=== PATIENT | female | born 1945 | race Caucasian/White ===

== ENCOUNTER 2020-03-16 16:37 | Outpatient (CLI) | payer MEDICARE, SELFPAY ==
--- NOTE | ~2020-03-16 | MM_ITS ---
EXAMINATION: MM screening [facility] BI w divina HISTORY: Screening mammogram TECHNIQUE: Craniocaudal and mediolateral oblique 3-D tomosynthesis images were obtained and synthetic 2-D images were generated. CAD analysis was submitted and interpreted. COMPARISON: 03/04/2019, 02/18/2018, 02/16/2017 BREAST PARENCHYMAL COMPOSITION: The breasts are heterogeneously dense, which may obscure small masses . FINDINGS: There is no evidence of suspicious mass, calcification, or architectural distortion to sugg est malignancy in either breast. There has been no suspicious interval change. IMPRESSION: 1. No mammographic evidence of malignancy. 2. Recommend routine screening mammography in one year. BI-RADS Category 1: Negative Reviewed, dictated and finalized at location A.
== END 2020-03-16 16:38 | disposition home or self-care (01) ==
LOC: ANHIMG 16:40
PROVIDERS: PCP Family Medicine; Visit Provider Physician Assistant
DX: Z12.31 Encounter for screening mammogram for malignant neoplasm of breast (principal)
CPT/HCPCS: 77063; 77067

== ENCOUNTER 2021-06-27 15:03 | Outpatient (CLI) | payer MEDICARE, SELFPAY ==
--- NOTE | ~2021-06-27 | MM_ITS ---
EXAMINATION: MM screening [facility] BI w divina HISTORY: Screening TECHNIQUE: Craniocaudal and mediolateral oblique 3-D tomosynthesis images were obtained and synthetic 2-D images were generated. CAD analysis was submitted and interpreted. COMPARISON: Comparison to multiple prior studies sequentially, with oldest reviewed study dated 02/05. BREAST PARENCHYMAL COMPOSITION: The breasts are heterogenously dense, which may obscure small masses FINDINGS: There is no evidence of suspicious mass, calcification, or architectural distortion to sugg est malignancy in either breast. There has been no suspicious interval change. IMPRESSION: 1. No mammographic evidence of malignancy. 2. Recommend routine screening mammography in one year. BI-RADS Category 1: Negative Reviewed, dictated and finalized at location A. OPERATOR
== END 2021-06-27 15:04 | disposition home or self-care (01) ==
LOC: ANHIMG 15:05
PROVIDERS: PCP Family Medicine; Visit Provider Physician Assistant
DX: Z12.31 Encounter for screening mammogram for malignant neoplasm of breast (principal)
CPT/HCPCS: 77063; 77067

== ENCOUNTER 2021-09-04 07:51 | Outpatient (CLI) | payer MEDICARE, SELFPAY ==
--- NOTE | ~2021-09-04 | DEXA_ITS ---
Bone Density Report Name: ERICK GÓMEZ Age: 75 Sex: Female Ethnicity: White Date of : 1945 Indication: osteopenia; height loss; Referring Provider: TENZIN HEATH Study: Bone densitometry was performed. Exam Date: September 04, 2021 Accession number: [id number] Bone Density: Region BMD T-score Z-score Classification AP Spine(L1-L4) 0.794 -2.3 0.0 Osteopenia Femoral Neck (Left) 0.584 -2.4 -0.4 Osteopenia Total Hip (Left) 0.651 -2.4 -0.7 Osteopenia Femoral Neck (Right) 0.602 -2.2 -0.2 Osteopenia Total Hip (Right) 0.709 -1.9 -0.2 Osteopenia Total Hip Mean 0.680 -2.2 -0.5 Osteopenia World Health Organization criteria for BMD impression classify patients as: Normal (T-score at or above -1.0), Osteopenia (T-score between -1.0 and -2.5), or Osteoporosis (T-score at or below -2.5). 10-year Fracture Risk(1): Major Osteoporotic Fracture 15% Hip Fracture 4.0% Reported Risk Factors: [place] (), Neck BMD=0.584, BMI=29.1 (1) FRAX(R) Version 3.08. Fracture probability calculated for an untreated patient. Fracture probability may be lower if the patient has received treatment. Previous Exams: Region Exam Age BMD T-score BMD Change BMD Change Date g/cm2 vs Baseline vs Previous AP Spine(L1-L4) 09/04/2021 75 0.794 -2.3 -0.010(-1.3%) 0.012(1.6%) 03/04/2019 73 0.781 -2.4 -0.023(-2.8%)* 0.012(1.6%) 02/16/2017 71 0.769 -2.5 -0.035(-4.3%)* -0.035(-4.3%)* 02/05/2015 69 0.804 -2.2 Total Hip(Left) 09/04/2021 75 0.651 -2.4 -0.039(-5.7%)* -0.042(-6.1%)* 03/04/2019 73 0.693 -2.0 0.003(0.4%) 0.019(2.8%) 02/16/2017 71 0.674 -2.2 -0.016(-2.3%) -0.016(-2.3%) 02/05/2015 69 0.690 -2.1 Total Hip(Right) 09/04/2021 75 0.709 -1.9 0.013(1.9%) 0.012(1.7%) 03/04/2019 73 0.697 -2.0 0.001(0.2%) 0.011(1.6%) 02/16/2017 71 0.686 -2.1 -0.010(-1.4%) -0.010(-1.4%) 02/05/2015 69 0.696 -2.0 *Denotes significance at 95% confidence level, LSC for AP Spine = 0.022 g/cm2, LSC for Total Hip = 0.027 g/cm2 Clinical Information Provided by Patient: Patient maximum height was 67 Menopause Age: 47 Drinks caffeinated beverages Onset of menses at age 14 Number of children 2 Impression: The patient has low bone mass, based on the Left Total Hip T-score. The patient has an estimated ten-year risk of hip fracture of 4% and an estimated ten-year risk of major f
== END 2021-09-04 07:52 | disposition home or self-care (01) ==
LOC: ANHIMG 07:52
PROVIDERS: PCP Family Medicine; Visit Provider Physician Assistant
DX: Z78.0 Asymptomatic menopausal state (principal); M85.88 Other specified disorders of bone density and structure, other site; M85.851 Other specified disorders of bone density and structure, right thigh; M85.852 Other specified disorders of bone density and structure, left thigh
CPT/HCPCS: 77080

== ENCOUNTER → 2022-05-08 11:48 | Outpatient (CLI) | payer MEDICARE, SELFPAY ==
--- NOTE | ~2022-05-08 | XR_ITS ---
Lumbosacral Spine: AP, oblique, and lateral views Clinical History: Pain Findings: The normal lordotic curve is maintained. No fracture or subluxation seen. There is moderate degenerative disc narrowing at L4-L5 and L5-S1. There are mild facet joint degenerative changes at L 4-L5 and L5-S1. The sacroiliac joints are normally outlined. Impression: Mild degenerative changes, as above. Reviewed, dictated and finalized at location M. AVING MACHINE OPERATOR Impression: Mild degenerative changes, as above.
--- NOTE | ~2022-05-08 | XR_ITS ---
Left Knee Technique: AP, lateral, and sunrise views were obtained. Clinical History: Pain Findings: No fracture or dislocation is seen. Osseous alignment is anatomic. There is mild to moderat e tricompartmental osteoarthritis, with osteophyte formation and medial compartment narrowing. Soft t issues are unremarkable. No joint effusion is seen. Impression: [id number] tricompartmental osteoarthritis, as detailed above. Reviewed, dictated and finalized at location M. OFF SAW OPERATOR Impression: [id number] tricompartmental osteoarthritis, as detailed above.
--- NOTE | ~2022-05-08 | XR_ITS ---
Right Knee Technique: AP, lateral, and sunrise views were obtained. Clinical History: Pain Findings: No fracture or dislocation is seen. Osseous alignment is anatomic. There is mild to moderat e tricompartmental osteoarthritis, with osteophyte formation. Probable mild medial compartment narrow ing.. Soft tissues are unremarkable. No joint effusion is seen. Impression: Mild to moderate tricompartmental osteoarthritis, as detailed above. Reviewed, dictated and finalized at location M. ECT BUYER Impression: Mild to moderate tricompartmental osteoarthritis, as detailed above.
== END ==
PROVIDERS: PCP Family Medicine; Visit Provider Physician Assistant
DX: M51.36 Other intervertebral disc degeneration, lumbar region (principal); M17.0 Bilateral primary osteoarthritis of knee
CPT/HCPCS: 72110; 73562

== ENCOUNTER 2022-09-11 15:11 | Outpatient (CLI) | payer MEDICARE, SELFPAY ==
--- NOTE | ~2022-09-11 | MM_ITS ---
EXAMINATION: MM screening [facility] BI w divina HISTORY: Screening mammogram TECHNIQUE: Craniocaudal and mediolateral oblique 3-D tomosynthesis images were obtained and synthetic 2-D images were generated. CAD analysis was submitted and interpreted. COMPARISON: June 27, 2021, March 16, 2020, March 04, 2019 bilateral screening mammogram examin ations BREAST PARENCHYMAL COMPOSITION: The breasts are heterogeneously dense, which may obscure small masses . FINDINGS: There is suggestion of a new approximately 8 mm mass in the mid to lower outer right breast . Diagnostic right mammogram and right breast ultrasound examination are recommended. Otherwise there is no evidence of suspicious mass, calcification, or architectural distortion to sugg est malignancy in either breast. There has been no other suspicious interval change. IMPRESSION: 1. Possible new 8 mm mass in mid to lower outer right breast 2. Diagnostic right mammogram and right breast ultrasound examination are recommended BI-RADS Category 0: Incomplete: Needs additional imaging evaluation. Reviewed, dictated and finalized at location A. IMPRESSION: 1. Possible new 8 mm mass in mid to lower outer right breast 2. Diagnostic right mammogram and right breast ultrasound examination are recom mended BI-RADS Category 0: Incomplete: Needs additional imaging evaluation.
== END 2022-09-11 15:12 | disposition home or self-care (01) ==
PROVIDERS: PCP Family Medicine; Visit Provider Physician Assistant
DX: Z12.31 Encounter for screening mammogram for malignant neoplasm of breast (principal); R92.8 Other abnormal and inconclusive findings on diagnostic imaging of breast
CPT/HCPCS: 77063; 77067

== ENCOUNTER 2022-09-27 13:36 | Outpatient (CLI) | payer MEDICARE, SELFPAY ==
--- NOTE | ~2022-09-27 | MMUS_ITS ---
EXAMINATION: MM diagnostic [facility] RT w divina, US breast RT limited HISTORY: Possible right breast mass on screening mammogram TECHNIQUE: Additional 3-D tomosynthesis images of the right breast were performed and synthetic 2-D i mages were generated. CAD analysis was submitted and interpreted. High resolution limited right breas t ultrasound was performed. COMPARISON: 09/11/2022, 06/27/2021, 03/16/2020 FINDINGS: MAMMOGRAPHIC FINDINGS: There is a return to baseline fibroglandular appearance with spot compression of the right breast in the area questioned on screening mammogram. ULTRASOUND: There is a 12 mm x 6 mm oval, circumscribed, parallel, complex cystic and solid mass at the 10:00 loc ation 3 cm from the nipple with no posterior features or internal vascularity, possible clustered kati rocysts. IMPRESSION: 1. Probably benign right breast mass. 2. Recommend 6 month follow-up right diagnostic mammogram and ultrasound. BI-RADS category 3, probably benign findings. Reviewed, dictated and finalized at location A. IMPRESSION: 1. Probably benign right breast mass. 2. Recommend 6 month follow-up right diagnostic mammogram and ultrasound. BI-RADS category 3, probably benign findings.
== END 2022-09-27 13:37 | disposition home or self-care (01) ==
PROVIDERS: PCP Family Medicine; Visit Provider Family Medicine
DX: N63.11 Unspecified lump in the right breast, upper outer quadrant (principal)
CPT/HCPCS: 76642; 77061; 77065; G0279

== ENCOUNTER 2023-03-07 14:01 | Outpatient (CLI) | payer MEDICARE, SELFPAY ==
--- NOTE | 2023-03-07 14:08 | ECG_ITS ---
Measurements Intervals [place] Rate: 70 P: -8 FL: 149 QRS: -8 QRSD: 96 T: 30 QT: 420 QTc: 454 Interpretive Statements SINUS RHYTHM SEPTAL MYOCARDIAL INFARCTION , OF INDETERMINATE AGE [40+ ms Q WAVE IN V1/V2] ABNORMAL ECG NO PREVIOUS ECG AVAILABLE FOR COMPARISON Electronically Signed On 03-07-2023 17:24:29 CDT by Pablo Blanca M.D.
== END 2023-03-07 14:02 | disposition home or self-care (01) ==
LOC: ANHLAB 14:03 → ANHCARD 14:05
PROVIDERS: PCP Family Medicine; Visit Provider Family Medicine
DX: Z01.818 Encounter for other preprocedural examination (principal); R94.31 Abnormal electrocardiogram [ECG] [EKG]; R93.1 Abnormal findings on diagnostic imaging of heart and coronary circulation; I10 Essential (primary) hypertension
CPT/HCPCS: 93005

== ENCOUNTER 2023-03-19 09:56 | Outpatient (CLI) | payer MEDICARE, SELFPAY ==
--- NOTE | ~2023-03-19 | NM_ITS ---
EXAMINATION: NM mago stress w perfusion DATE: 03/19/2023 12:57 INDICATION: Abnormal electrocardiogram. TECHNIQUE: Rest images were obtained following intravenous administration of 9.2 mCi Tc99m tetrofosmi n (Myoview). The patient was infused intravenously with Lexiscan (regadenoson). Then, 28.3 mCi Tc99m tetrofosmin (Myoview) was administered intravenously, and stress images were obtained. Data was recon structed into short axis and horizontal and vertical long axis SPECT images. Gated SPECT images were also obtained. COMPARISON: None. FINDINGS: There is no definite reversible or fixed perfusion abnormality to suggest ischemia or infar ction. There is no segmental wall motion abnormality. Left ventricular ejection fraction measures > 70%. IMPRESSION: 1. No definite ischemia or infarct. 2. Normal left ventricular ejection fraction measuring >70%. Reviewed, dictated and finalized at location E.
--- NOTE | 2023-03-19 10:17 | EST_ITS ---
Patient Info Name: Irma Iglesias Age: 77 years : 1945 Gender: Female Ht: 67 in Wt: 185 lbs BSA: 2.01 m2 HR: 65 bpm BP: 159 / 91 mmHg Exam Date: 03/19/2023 10:51 AM Exam Location: Echo Lab Patient Status: Outpatient Admit Date: 03/19/2023 Staff Ordering Physician: Galina Nash MD Attending Provider: DR. REYES Exercise Technologist: Bertha Kelsey CT Exercise Physician: Mauricio Reyes DO Exam Type: CA stress mago w NM Study Info Indications R94.31 - Abnormal electrocardiogram ECG EKG Z01.810 - Encounter for preprocedural cardiovascular examination A regadenoson stress test was performed. Summary 1. 1. Negative lexiscan stress test for ischemic ST changes by ECG criteria. 2. 2. Baseline hypertension. 3. 3. Nuclear scan to follow and will be reported separately. Please correlate with it. 4. 4. Patient informed of the above results. Protocol: Lexiscan Stress ECG Details Stage: REST Duration (min): 1 min : 3 sec HR (bpm): 65 SBP (mmHg): 159 DBP (mmHg): 91 Stage: REST Duration (min): 32 min : 19 sec HR (bpm): 67 SBP (mmHg): 159 DBP (mmHg): 91 Stage: STAGE 1 Duration (min): 1 min : 0 sec HR (bpm): 77 SBP (mmHg): 187 DBP (mmHg): 106 Stage: RECOVERY Duration (min): 1 min : 0 sec HR (bpm): 85 SBP (mmHg): 187 DBP (mmHg): 106 Stage: RECOVERY Duration (min): 2 min : 0 sec HR (bpm): 79 SBP (mmHg): 187 DBP (mmHg): 106 Stage: RECOVERY Duration (min): 3 min : 0 sec HR (bpm): 78 SBP (mmHg): 187 DBP (mmHg): 106 Stage: RECOVERY Duration (min): 3 min : 24 sec HR (bpm): 78 SBP (mmHg): 150 DBP (mmHg): 99 Rest HR: 67 bpm Peak HR: 85 bpm Rest Sys BP: 159 mmHg Peak Sys BP: 187 mmHg Max Pred HR: 145 bpm % Max Pred HR: 59 % Target HR: 123 bpm Max RPP: 15,895 bpm*mmHg Termination Reason: Completed protocol Cardiac Symptoms: Shortness of breath Total Time: 1 min : 0 sec Rest Zayas BP: 91 mmHg Peak Zayas BP: 106 mmHg Total Dose: 0.4 mg Resting ECG Sinus rhythm, IRBBB, delayed precordial R/S transition. Stress ECG No ST changes. Arrhythmias None. Report Signatures
== END 2023-03-19 09:57 | disposition home or self-care (01) ==
LOC: ANHCARD 10:00
PROVIDERS: PCP Family Medicine; Visit Provider Family Medicine
DX: R94.31 Abnormal electrocardiogram [ECG] [EKG] (principal)
CPT/HCPCS: 78452; 93017; A9502; J2785

== ENCOUNTER 2023-06-16 15:17 | Emergency (ER) | payer MEDICARE, SELFPAY ==
--- NOTE | 2023-06-16 15:27 | ED.EAR ---
HPI - Ear Problem General Chief complaint: Ear Stated complaint: hearing echoing Time Seen by Provider: 06/16/23 15:35 Source: patient Mode of arrival: ambulatory Limitations: no limitations History of Present Illness HPI Narrative: Irma is a 77-year-old female patient presenting to the clinic today with complaints of hearing difficulty/echoing and a throbbing sensation in her ears. This has occurred over the left last few days. She denies any pain or URI symptoms Related Data Home Medications Medication Instructions Recorded Confirmed fexofenadine 180 mg tablet 180 mg PO DAILY 02/16/20 06/16/23 (Andra Allergy) fluticasone propionate 50 1 spray intranasal DAILY 04/11/21 06/16/23 mcg/actuation nasal spray,suspension (Flonase Allergy Relief) Allergies Allergy/AdvReac Type Severity Reaction Status Date / Time albuterol AdvReac Intermediate tachycardia Verified 06/16/23 15:19 Review of Systems Review of Systems: Pertinent positives per HPI. Patient denies any fever, chills, rash, headache, visual changes, dizziness, cough, runny nose, sore throat, shortness of breath, chest pain, palpitations, nausea, vomiting, diarrhea, constipation, abdominal pain, or any urinary issues. [facility] Past Medical History Medical History Arthritis Hypertension Osteopenia Thyroid disease Surgical History Surgical History History of appendectomy 1967 History of tubal ligation around 1982 Status post left knee replacement [place] teeth extracted Family History Family History Mother Family history of cardiovascular disease Sibling Family history of lung cancer Father Emphysema of lung Social History Social History Smoking status: Never smoker Second hand tobacco smoke exposure: No Alcohol intake: current Drinks per week: 2 Alcohol use details: 1 glass of wine consumed on the weekends Substance use: never Substance use type: does not use Lack of Transportation: No Lack of Food: Never True Current Housing: I Have Housing Concerned About Future Housing: No Difficulty Paying Gas/Electric Bills: No Difficulty Paying for Meds: No Currently Unemployed: No Education: High School Diploma/GED Difficulty w/ Childcare or Family Care: No Living arrangements: alone Occupation/Education: occupation Gender identity (if verbalized by the patient): Female Spiritual care concerns: No Agree to blood products: Yes Comments At the time of my signature, I reviewed and agree with the nursing past medical, surgical, social, and family history. There is no relevant family history pertinent to the patient complaint. Exam Narrative: General: Well-developed, well nourished, in no apparent distress Head: Normocephalic, atraumatic Eyes: Pupils equally round and reactive to light bilaterally, EOM intact, sclera and conjunctive clear, no discharge, lids normal Ears: Bilateral cerumen impaction, ear irrigation was performed, TMs intact and clear, ear canals clear, no drainage, hearing improved after irrigation was performed. Nose: Nares patent, no discharge, no inflammation, no sinus tenderness. Mouth: Oropharynx without lesions or masses, good dentition, MMM. Neck: Supple, trachea midline, no enlargement of anterior or posterior cervical nodes, no thyroid masses or goiter palpable. Cardio: Regular rate and rhythm, s1 and s2 normal, no murmur appreciated. Resp: Clear to auscultation bilaterally anteriorly and posteriorly, no rhonchi, rales, wheezing or rubs Course Course Emergency Course: Portions of this record may have been created with voice recognition software. Level of Care: Express Care Visit Vital Signs Vital signs: Vital signs revi
[2023-06-16 15:30] VITALS: BP 185/93; PULSE 94; RESP 20; TEMP 36.7; O2SAT 100
== END 2023-06-16 15:44 | disposition home or self-care (01) ==
PROVIDERS: Emergency Provider Nurse Practitioner Family; PCP Family Medicine
DX: H61.23 Impacted cerumen, bilateral (principal); M19.90 Unspecified osteoarthritis, unspecified site; I10 Essential (primary) hypertension; M85.80 Other specified disorders of bone density and structure, unspecified site; Z96.652 Presence of left artificial knee joint
CPT/HCPCS: 69209; 99212; G0463

== ENCOUNTER 2023-07-08 12:10 | Outpatient (CLI) | payer MEDICARE, SELFPAY ==
--- NOTE | ~2023-07-08 | MMUS_ITS ---
EXAMINATION: MM diagnostic [facility] RT w divina, US breast RT limited HISTORY: Follow-up right breast mass TECHNIQUE: Additional 3-D tomosynthesis images of the right breast were performed and synthetic 2-D i mages were generated. CAD analysis was submitted and interpreted. High resolution Limited right breas t ultrasound was performed. COMPARISON: Comparison to multiple prior studies sequentially, with oldest reviewed study dated 06/2017. BREAST PARENCHYMAL COMPOSITION: Dense: The breasts are heterogeneously dense, which may obscure small masses FINDINGS: MAMMOGRAPHIC FINDINGS: The right breast is stable. No new masses, calcifications or architectural distortion in the right br east to suggest malignancy. There are benign calcifications. ULTRASOUND: Limited right breast ultrasound: At 10:00, 3 cm from the nipple there is an irregular shaped hypoecho ic heterogeneous mass with parallel orientation, no significant posterior features and no internal va scularity. This mass measures 11 x 6 x 5 mm compared with 12 x 10 x 6 mm on prior examination althoug h it has a more solid appearance. The morphology of the mass has changed since prior study. IMPRESSION: 1. Altered morphology of 11 mm mass at 10:00, 3 cm from the nipple, indeterminate. 2. Follow-up ultrasound-guided right breast biopsy recommended. BI-RADS category 4, suspicious findings. Reviewed, dictated and finalized at location A. RIOR DESIGN INSTRUCTOR IMPRESSION: 1. Altered morphology of 11 mm mass at 10:00, 3 cm from the nipple, indetermina te. 2. Follow-up ultrasound-guided right breast biopsy recommended. BI-RADS category 4, suspicious findings.
== END 2023-07-08 12:11 | disposition home or self-care (01) ==
PROVIDERS: PCP Family Medicine; Visit Provider Physician Assistant
DX: R92.8 Other abnormal and inconclusive findings on diagnostic imaging of breast (principal)
CPT/HCPCS: 76642; 77061; 77065; G0279

== ENCOUNTER 2024-12-31 07:42 | Outpatient (CLI) | payer MEDICARE, SELFPAY ==
--- NOTE | ~2024-12-31 | DEXA_ITS ---
Bone Density Report Name: ERICK GÓMEZ Age: 79 Sex: Female Ethnicity: White Date of : 1945 Indication: postmenopausal; screening for osteoporosis; height loss; Referring Provider: NILDA DENG Study: Bone densitometry was performed. Exam Date: December 31, 2024 Accession number: [id number] Bone Density: Region BMD T-score Z-score Classification AP Spine(L1-L4) 0.825 -2.0 0.5 Osteopenia Femoral Neck (Left) 0.566 -2.6 -0.4 Osteoporosis Total Hip (Left) 0.620 -2.6 -0.7 Osteoporosis Femoral Neck (Right) 0.555 -2.6 -0.5 Osteoporosis Total Hip (Right) 0.658 -2.3 -0.4 Osteopenia Total Hip Mean 0.639 -2.5 -0.6 Osteopenia World Health Organization criteria for BMD impression classify patients as: Normal (T-score at or above -1.0), Osteopenia (T-score between -1.0 and -2.5), or Osteoporosis (T-score at or below -2.5). 10-year Fracture Risk: FRAX not reported because: Some T-score for Spine Total or Hip Total or Femoral Neck at or below -2.5 Clinical Information Provided by Patient: Has used the following medications: Vitamin D Patient maximum height was 67 Menopause Age: 47 Drinks caffeinated beverages Onset of menses at age 14 Number of children 2 Impression: The patient has osteoporosis, based on the Left Total Hip T-score. Discussion: INCREASED RISK OF FRACTURE. BONE DENSITY IS UNDESIRABLY LOW AT ONE OR MORE SKELETAL SITES, CONSISTENT WITH POSTMENOPAUSAL OSTEOPOROSIS. This patient's lowest T-score meets the World Health Organization's (WHO) criteria for osteoporosis at one or more sites (T-score -2.5 or below). In untreated patients, the risk of osteoporotic fracture increases approximately two-fold for each 1.0 SD decrease in T-score. Low bone density is not the only risk factor for fracture; also consider factors such as patient's age, frailty or poor health, risk of falling, risk of injury, previous osteoporotic fracture, family history of osteoporosis, cigarette smoking, low body weight, etc. Not everyone with low bone mineral density has osteoporosis; osteomalacia and other metabolic bone disorders should also be considered. Patients who have osteoporosis should be evaluated for specific diseases and conditions (secondary causes) that may cause or contribute to bone loss. The [place] Association of Clinical Endocrinologists (AACE) and National Osteoporosis Foundation (NOF) recommend pharmacologic intervention for all postmenopausal women whose T-score is in this range. The patient should follow a healthful lifestyle (good nutrition with adequate calcium and vitamin D, and appropriate weight-bearing exercise). Follow-Up: Consider a repeat BMD and Vertebral Fracture Assessment (VFA) exam in 2 years or sooner if medically necessary, to reassess this patient's status. Reported by: ROCAEL on 12/31/2024 8:34:00 AM. Reviewed, dictated and finalized at location A.
--- OUTSIDE RECORDS SUMMARY | 2024-12-31 07:47 | XMS_ITS | Continuity of Care Document ---
Author Organization [facility] Address [address] [place] [address] [facility] [address] [place] [address] Phone Care Team Providers Care Contour Stitcher Name Role Phone Amanda George Unavailable Unavailable Advance Directives Directive Yes / No Effective Date File Name No Information Encounters Encounter Description Practice Location Reason(s) For Visit Diagnoses Date Provider Providers Copied on Encounter [facility], [id number] [place] [address] [address], [place], [place], [id number], [place] tel:[phone] [facility] No Information [phone] Doris Patel. [address] , [address], [place], [address], [place]. tel:[phone] Family History Family Member Type Diagnosis Age At Onset No Information Payers Payer name Insurance type Covered libertarian ID Authoriza tion(s) No Information Social History Type Description Quantity Date Captured Comments Sex Female Smoking Status No Information Chief Complaint And Reason For Visit No Information Reason For Referral Reason For Referral No Information History Of Present Illness Encounter Date Complaint History Of Prese nt Illness No Information Functional Status Date Functional Assessmen t No Information Instructions Date Instruction Additional Infor mation No Information Assessments Type Assessment Date No Information Patient Care Teams Name Effective Dates (start - stop) Status Members No Information
--- OUTSIDE RECORDS SUMMARY | 2024-12-31 07:47 | XMS_ITS | Clinical Summary ---
Author Organization [facility] Address [address], [facility] [address] [place] [address] Phone Care Team Providers Care Medical Records Assistant Name Role Phone Sharad De Los Santos MD Primary Care Provider [phone] Medications polyethylene glycol (MIRALAX) Powder Use entire 255g bottle with 64oz of clear liquid as directed for colonoscopy prep. 255 g 7 Active levothyroxine (SYNTHROID) 50 MCG Tablet Take 50 mcg by mouth daily. Active lisinopril (PRINIVIL, ZESTRIL) 40 MG Tablet Take 40 mg by mouth daily. Active Fexofenadine HCl (JOHN PO) Take by mouth. Activ e Ibuprofen (ADVIL PO) Take by mouth. Acti ve Wheat Dextrin (BENEFIBER PO) Take by mouth. Active Docusate Sodium (COLACE PO) Take by mouth. Act linda Family History Medical History Relation Name Comments Lung Cancer Brother Emphysema Father Colon Cancer Mother Hypertension Mother Relation Name Status Comments Brother Father Mother Social History Tobacco Use Types Packs/Day Years Used Date Smoking Tobacco: Never Smokeless Tobacco: Never Alcohol Use Standard Drinks/Week Comments Yes 0 (1 standard drink = 0.6 oz pur e alcohol) socailly Comments Unknown Sex and Gender Information Value Date Recorded Sex Assigned at Not on file Legal Sex Female 9:33 PM CDT Gender Identity Not on file Sexual Orientation Not on file Plan of Treatment Health Maintenance Due Date Last Done Comments Hepatitis C Virus (HCV) Screening 1945 TdaP Immunization 1945 Pneumococcal Immunization (5 0+ years) (1 of 1 - PCV) 12/30/1997 Zoster Immunization (1 of 2) 12/30/1997 Respiratory Syncytial Virus (RSV) Immunization (Adult) (1 - 1-dose 75+ series) 12/30/2022 SARS-COV-2 Immunization (1 - 2023- season) 2024 Influenza Immunization (#1) 2025 Colonoscopy Discontinued 05/09/2017 Colorectal Cancer Screening Discontinued Cologuard Discontinued Hepatitis B Immunization Aged Out No longer eligible based on patient's age to complete this topic Human Papillomavirus (HPV) Immunization Aged Out No longer eligible b ased on patient's age to complete this topic Immunochemical Fecal Occult Blood Discontinued Meningococcal Immunization (ACWY) Aged Out No longer eligible based on patient's age to complete this topic Rotavirus Immunization Aged Out No lo nger eligible based on patient's age to complete this topic Procedures Procedure Name Priority Date/Time Associated Diagnosis Comments COLONOSCOPY Routine 05/09/2017 from Last 3 Months or Most Recently Relevant to Health Maintenance Results * COLONOSCOPY (05/09/2017) Kong Disla DO PROCEDURE/MINOR SURGICAL ORDERA BLES Final Result from Last 3 Months or Most Recently Relevant to Health Maintenance Insurance MEDICARE [facility]IL[facility] Care Teams Medical Records Assistant Relationship Specialty Start Date End Date Sharda De Los Santos MD [address] [place] [address] PCP - General Family Medicine 11/27/16
--- OUTSIDE RECORDS SUMMARY | 2024-12-31 07:47 | XMS_ITS | Clinical Summary ---
Author Organization [facility] Address [address] [place] [address] Care Team Providers Care Claim Analyst Name Role Phone Galina Nash MD Primary Care Provider [phone] Allergies Active Allergy Reactions Criticality Noted Date Comments Albuterol Palpitations Low 12/25/2022 Medications levothyroxine (SYNTHROID) 75 mcg tablet Take 1 tablet (75 mcg total) by mouth daily Active lisinopriL (PRINIVIL,ZESTR IL) 40 mg tablet Take 1 tablet (40 mg total) by mouth daily Active fexofenadine (JOHN) 180 mg tablet Take 1 tablet (180 mg total) by mouth daily Active fluticasone propionate (FLONASE) 50 mcg/actuation nasal spray Administer 1 spray into each nostril daily Active montelukast (SINGULAIR) 10 mg tablet Take 1 tablet (10 mg total) by mouth nightly at bedtime 3 Active metoprolol tartrate (LOPRESSOR) 25 mg immediate release tablet Take 1 tablet (25 mg total) by mouth daily 4 Active amoxicillin (AMOXIL) 500 mg tablet/capsule Take four capsules one hour prior to any dental procedure 12 tablet/capsul e 4 Active Active Problems Problem Noted Date Diagnosed Date Arthritis of left knee 04/01/2023 Primary osteoarthritis of left knee 01/24/2023 Surgical History Surgery Date Site/Laterality Comments APPENDECTOMY 05/20/1966 - 05/19/1967 COLONOSCOPY JOINT REPLACEMENT 04/01/2023 Left Knee BREAST BIOPSY 08/09/2023 Right Medical History Medical History Date Comments Hypertension Osteoarthritis Thyroid disease Hypothyroidism History of nuclear stress test 02/2023 W NL History of transfusion unsure, p ossbily follow appendix White coat syndrome with hypertension Family History Medical History Relation Name Comments Arthritis Mother Cancer Mother Heart disease Mother Relation Name Status Comments Mother Social History Tobacco Use Types Packs/Day Years Used Date Smoking Tobacco: Never Tobacco Cessation:Counseling Given: Not Answered [facility] Utilities Answer Date Recorded In the past 12 months has e [employer], gas, oil, or water [employer] threatened to shut off services in your home? No 04/02/2023 Social Connection and Isolation Panel Answer Date Recorded In a typical week, how many times do you talk on the phone with family, friends, or neighbors? More than three times a week 04/02/2023 How often do you get togethe r with friends or relatives? More than three times a week 04/02/2023 How often do you attend chur ch or episcopal services? More than 4 times per year 04/02/2023 Do you belong to any clubs o r organizations such as jainism groups, unions, fraternal or athletic groups, or school groups? No 04/02/2023 How often do you attend meet ings of the clubs or organizations you belong to? Never 04/02/2023 Are you , , di vorced, , never , or living with a partner? 04/02/2023 AUDIT-C Answer Date Recorded Q1: How often do you have a drink containing alc ohol? Monthly or less 04/01/2023 Q2: How many drinks containi ng alcohol do you have on a typical day when you are drinking? 1 or 2 04/01/2023 Q3: How often do you have si x or more drinks on one occasion? Never 04/01/2023 Overall Financial Resource Strain (CARDIA) Answe r Date Recorded How hard is it for you to pa y for the very basics like food, housing, medical care, and heating? Not hard at all 04/02/2023 Hunger Vital Sign Answer Date Recorded Within the past 12 months, y ou worried that your food would run out before you got the money to buy more. Never true 04/02/20 23 Within the past 12 months, t he food you bought just didn't last and you didn't have money to get more. Never true 04/02/2023 PRAPARE - Transportation Answer Date Re corded In the past 12 months, has l ack of transportation kept you from medical appointments or from getting medications? No 03/20 In the past 12 months, has l ack of transportation kept you from meetings, work, or from getting things needed for daily living? No 04/02/2023 Housing Stability Vital Sign Answer Sb e Recorded In the last 12 months, was t here a time when you were not able to pay the mortgage or rent on time? No 04/02/2023 In the last 12 months, how many places have you lived? 1 04/02/2023 In the last 12 months, was t here a time when you did not have a steady place to sleep or slept in a care home (including now)? No 04/02/2023 Personal Safety Answer Date Recorded Have you ever been in or are you currently in a harmful physical or emotional relationship or is someone making you feel afraid or unsafe? 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 Not on file Not on file Not on file Obstetrics History Last Filed Vital Signs Vital Sign Reading Time Taken Comments Blood Pressure 142/74 04/02/2023 7:00 AM DRUG COORDINATOR Pulse 62 04/02/2023 7:00 AM DRUG COORDINATOR Temperature 36.3 C (97.3 F) 04/02/2023 7:00 AM DRUG COORDINATOR Respiratory Rate 18 04/02/2023 7:00 AM DRUG COORDINATOR Oxygen Saturation 96% 04/02/2023 7:00 AM DRUG COORDINATOR Inhaled Oxygen Concentration - - Weight 85.3 kg (188 lb) 09/25/2024 11:23 AM CDT Height 170.2 cm (5' 7) 09/25/2024 11:23 AM CDT Body Mass Index 29.44 09/25/2024 11:23 AM CDT Plan of Treatment Health Maintenance Due Date Last Done Comments Depression Screening 1945 Hepatitis C Screening 1945 Osteoporosis Screening-Bone Density Scan 1945 Hepatitis B Screening 12/30/1965 Zoster Vaccine (1 of 2) 12/30/1997 Well Visit 65+ 12/30/2012 Covid-19 Vaccine (4 - 2023-2 5 season) 2024 05/02/2021, 07/24/2020, 07/03/2020 Fall Risk Assessment 04/02/2024 04/02/2023 DTaP/Tdap/Td Vaccine (2 - Td or Tdap) 05/20/2024 05/20/2014 Influenza Vaccine (#1) 2025 Pneumococcal vaccine 65+ Completed 021, 02/25/2019, 11/12/2013 Breast Cancer Screening-Mammogram Discontinued 024 Medical Devices Implanted Type Area Bilingual Receptionist Device Identifier Shelf Expiration Date Model / Serial / Lot [employer] Simplex P Radiopaque Full Dose Cement Bone Sterile 6191-1-010 - [id number] Implanted:Qty: 1 on 04/01/2023 by Marcio Mcclain MD at [facility] Bone Cement Left: Knee [employer] 06/19/2025 6191-1-010 / [id number] / [id number] [facility] [employer] Partnership Marker Biospy Site Top Hat Shape [employer] [id number] - [id number] Implanted:Qty: 1 on 08/09/2023 by Deny Calle MD at [facility] Right: Breast [employer]ologic [employer] Partnership [id number] 04/09/2024 YUANK-ANUSHA RO-2S / / [id number] [employer]O rtho Legion 11mm Posterior Stabilized High Flexion Knee 5-6 Insert [id number] - [id number] Implanted:Qty: 1 on 04/01/2023 by Marcio Mcclain MD at [facility] Left: Knee [employer]/ Ortho [id number] 04/15/2032 [id number] / / [id number] [employer]O rtho Avelina Ii Cement Left Knee 5 Baseplate Tibial Titanium Nonporous [id number] - [id number] Implanted:Qty: 1 on 04/01/2023 by Marcio Mcclain MD at [facility] Left: Knee [employer]/ Ortho [id number] 04/04/2032 [id number] / / [id number] [employer]O [employer]o Legion Cemented Posterior Stabilize Knee Left 6n Component [id number] - [id number] Implanted:Qty: 1 on 04/01/2023 by Marcio Mcclain MD at [facility] Left: Knee [employer]/ Ortho [id number] 10/13/2032 [id number] / / [id number] [employer]/O rtho Avelina Ii 13mm 29mm Biconvex Knee Component Patellar Uhmwpe [id number] - [id number] Implanted:Qty: 1 on 04/01/2023 by Marcio Mcclain MD at [facility] Left: Knee [employer]/ Ortho [id number] 01/20/2033 [id number] / / [id number] Procedures Procedure Name Priority Date/Time Associated Diagnosis Comments DIAGNOSTIC MAMMOGRAM BILATERAL W LEV Schedule Routine, Read Routine (OP Routine) 02/14/2024 8:20 AM CDT H/O benign breast biopsy from Last 3 Months or Most Recently Relevant to Health Maintenance Results * Diagnostic Mammogram Bilateral W Lev (02/14/2024 8:20 AM CDT) Anatomical Region Laterality Modality Breast Bilateral Mammography 02/14/2024 8:25 AM CDT Narrative 02/14/2024 8:26 AM CDT EXAM DESCRIPTION: DIAGNOSTIC MAMMOGRAM BILATERAL W LEV REASON FOR STUDY: 78-year-old woman comes in today for follow-up of the right breast after a benign biopsy performed in July. COMPARISON: 08/09/2023, 07/08/2023, 09/27/2022, 09/11/2022. TECHNIQUE: CC and MLO digital breast tomosynthesis of both breasts with C view was performed. FINDINGS: DENSITY: The breasts are heterogeneously dense, which may obscure small masses. There are expected post biopsy changes in the right breast. The biopsy marker clip is in unchanged position. Benign calcifications are again seen in both breasts, mostly corresponding to vascular calcifications. No new suspicious findings identified. IMPRESSION: Expected post biopsy changes in the right breast. No new suspicious findings identified in either breast. Continued monthly breast self exam recommended, and return to annual screening mammography schedule. BIRADS: 2 - Benign The patient was notified of the results at the time of the examination. THIS IS AN ELECTRONICALLY VERIFIED FINAL REPORT 02/14/2024 8:26 AM - Electronically signed by Stewart Yun M.D. RL: KERRY Report ID: [id number] Reading Location: [facility] Deny Calle MD IM MAMMO PROCEDURES Final Res ult from Last 3 Months or Most Recently Relevant to Health Maintenance Insurance MEDICARE [facility] MEDICARE RAILROAD [employer] MEDICARE SUPPLEMENT MEDICARE RAILROAD [address] BLUE CROSS MEDICARE SUPPLEMENT Advance Directives For more information, please contact: [phone] * Full Code (Latest Code Status on File) Date Activated Date Inactivated Comments 04/01/2023 11:05 AM 04/02/2023 7:49 PM Care Teams Claim Analyst Relationship Specialty Start Date End Date Galina Nash MD PCP - General Family Medicine 03/22/23
== END 2024-12-31 07:43 | disposition home or self-care (01) ==
LOC: ANHIMG 07:43
PROVIDERS: PCP Family Medicine; Visit Provider Student in an Organized Health Care Education/Training Program
DX: Z78.0 Asymptomatic menopausal state (principal); M85.88 Other specified disorders of bone density and structure, other site; M81.0 Age-related osteoporosis without current pathological fracture; M85.851 Other specified disorders of bone density and structure, right thigh
CPT/HCPCS: 77080